=== PATIENT | male | born 1970 | race Caucasian/White ===

== ENCOUNTER 2016-08-05 16:05 | Emergency (ER) | payer OTHER | END 2016-08-05 20:00 | disposition home or self-care (01) | LOC: ER1 16:05 | DX: S16.1XXA Strain of muscle, fascia and tendon at neck level, initial encounter (principal); S81.811A Laceration without foreign body, right lower leg, initial encounter; I10 Essential (primary) hypertension; F17.210 Nicotine dependence, cigarettes, uncomplicated; V43.52XA Car driver injured in collision with other type car in traffic accident, initial encounter; Z79.899 Other long term (current) drug therapy | CPT/HCPCS: 12002; 72125; 73590; 99284 ==

== ENCOUNTER 2020-05-03 19:51 | Emergency (ER) | payer OTHER ==
[~2020-05-03 19:51] MED LIST: EPIPEN 2-P0.3 MG/0.3 INJ; FLEXERIL 10 MG10 MG PO; IBUPROFEN600 MG PO
[2020-05-03] MEDS ORDERED: IBUPROFEN800 MG PO (20:05)
[2020-05-03] MEDS ORDERED: AUGMENTIN 875-1 EACH PO (20:05)
== END 2020-05-03 20:47 | disposition home or self-care (01) ==
LOC: ER1 19:51
DX: K08.89 Other specified disorders of teeth and supporting structures (principal); I10 Essential (primary) hypertension; F17.200 Nicotine dependence, unspecified, uncomplicated
CPT/HCPCS: 99282

== ENCOUNTER 2020-05-29 13:35 | Emergency (ER) | payer OTHER ==
[~2020-05-29 13:35] MED LIST changes: +AUGMENTIN 875-1 EACH PO; +IBUPROFEN800 MG PO
[2020-05-29] MEDS ORDERED: IBUPROFEN600 MG PO (16:12)
== END 2020-05-29 17:30 | disposition home or self-care (01) ==
LOC: ER1 13:35
DX: S13.4XXA Sprain of ligaments of cervical spine, initial encounter (principal); S63.501A Unspecified sprain of right wrist, initial encounter; S00.83XA Contusion of other part of head, initial encounter; I10 Essential (primary) hypertension; F17.210 Nicotine dependence, cigarettes, uncomplicated; V49.40XA Driver injured in collision with unspecified motor vehicles in traffic accident, initial encounter
CPT/HCPCS: 70450; 70486; 71045; 71046; 72125; 73090; 73110; 99284; J7030

== ENCOUNTER 2021-10-14 20:34 | Emergency (ER) | payer OTHER ==
[2021-10-14] MEDS ORDERED: VIBRAMYCIN100 MG PO (21:53)
== END 2021-10-14 22:08 | disposition home or self-care (01) ==
LOC: ER1 20:34
DX: S30.861A Insect bite (nonvenomous) of abdominal wall, initial encounter (principal); E78.5 Hyperlipidemia, unspecified; I10 Essential (primary) hypertension; F17.210 Nicotine dependence, cigarettes, uncomplicated; R40.2410 Glasgow coma scale score 13-15, unspecified time; W57.XXXA Bitten or stung by nonvenomous insect and other nonvenomous arthropods, initial encounter
CPT/HCPCS: 81001; 87086; 90715; 99283; J0696

== ENCOUNTER 2021-10-27 13:38 | Emergency (ER) | payer OTHER ==
[~2021-10-27 13:38] MED LIST changes: +VIBRAMYCIN100 MG PO
[2021-10-27 14:06] LABS: HEMOGLOBIN 16.4 gm/dl (14.0-17.5); RED BLOOD COUNT 5.01 M/UL (4.20-5.50)
[2021-10-27 14:25] LABS: BUN/CREATININE RATIO 13 (0-10)
== END 2021-10-27 18:40 | disposition home or self-care (01) ==
LOC: ER1 13:38
PROVIDERS: Emergency Medicine
DX: R10.9 Unspecified abdominal pain (principal); F17.200 Nicotine dependence, unspecified, uncomplicated
CPT/HCPCS: 80053; 81001; 82550; 82553; 83690; 84484; 85025; 99284